=== PATIENT | female | born 1975 | race Two or more races ===

== ENCOUNTER 2020-11-19 02:52 | Emergency (ER) | payer MEDICAID ==
[~2020-11-19] VITALS: Ht 165.1 cm; Wt 68.0 kg
--- NOTE | 2020-11-19 03:06 | Emergency Room Report ---
History of Present Illness General Chief Complaint: General Complaint Source: Patient Present Illness HPI This is a 65-year-old female with no past medical history. She presents with chief complaint of this. She says she is visiting from [place]. She was visiting her kids here in [place] for [place]. She was supposed to fly out yesterday. She says she has trouble with her ID so unable to get the pain take it. She will try to h and says she got wrong direction. She was waiting for the bus but none of them came. She said her phone went and she got very anxious and called 911. She admits to drinking alcohol tonight. Denies any other symptoms right now. Not anxious anymore. No fever chills but no nausea no vomiting. Nothing made it better. Not made it worse. Allergies: Uncoded Allergies: SULFA (Allergy, Unknown, 11/19/20) COVID-19 Screening Contact w/high risk pt: No Experienced COVID-19 symptoms?: No COVID-19 Testing performed OD GRINDER OPERATOR: No Patient History Past Medical History: see triage record, old chart reviewed Past Surgical History: none Pertinent Family History: none Social History: Reports: alcohol use Immunizations: other Reviewed Nursing Documentation: PMH: Agreed; PSxH: Agreed Nursing Documentation-PMH Hx Hypertension: Yes Hx Diabetes: Yes Review of Systems Eye: Denies: eye pain, blurred vision ENT: Denies: ear pain, nose congestion, throat swelling Respiratory: Denies: cough, shortness of breath Cardiovascular: Denies: chest pain, palpitations Gastrointestinal: Denies: abdominal pain, diarrhea, nausea, vomiting Musculoskeletal: Denies: back pain, joint pain Skin: Denies: rash Neurological: Denies: headache, numbness Endocrine: Denies: increased thirst, increased urine Hematologic/Lymphatic: Denies: easy bruising All Other Systems: negative except mentioned in HPI Physical Exam Vital Signs Date Time Temp Pulse Resp B/P (MAP) Pulse Ox O2 Delivery O2 Flow Rate FiO2 11/19/20 02:53 98.4 100 18 146/76 (99) 97 Room Air Vitals unremarkable Sp02 EP Interpretation: reviewed, normal General Appearance: well appearing, no apparent distress, alert, other - Slurring her speech. Head: normocephalic, atraumatic Eyes: bilateral eye PERRL, bilateral eye EOMI ENT: hearing grossly normal, normal pharynx Neck: full range of motion, supple, no meningismus Respiratory: chest non-tender, lungs clear, normal breath sounds Cardiovascular #1: regular rate, rhythm, no murmur Gastrointestinal: normal bowel sounds, non tender, no mass, no organomegaly, no bruit, non-distended Musculoskeletal: back normal, normal range of motion, gait/station normal Psychiatric: mood/affect normal Medical Decision Making Diagnostic Impression: Primary Impression: Alcohol intoxication Qualified Codes: F10.920 - Alcohol use, unspecified with intoxication, uncomplicated Additional Impression: Anxiety ER Course Presents with anxiety. [place] better now. This may be alcohol related. She access to phones on her. Patient claimed that she is not homeless. Will discharge home in the morning. Last Vital Signs Date Time Temp Pulse Resp B/P (MAP) Pulse Ox O2 Delivery O2 Flow Rate FiO2 11/19/20 02:53 98.4 100 18 146/76 (99) 97 Room Air Status: improved Disposition: HOME, SELF-CARE Condition: Stable Additional Instructions: Abstain from alcohol. Follow-up with your doctor in 7 days. Return if worse. Shaan Alcazar MD Nov 19, 2020 03:06
[2020-11-19 03:09] VITALS: BP 140/75
[2020-11-19 05:30] VITALS: BP 112/85
== END 2020-11-19 05:30 | disposition home or self-care (01) ==
LOC: EDSEX 02:52 → EDBD 02:52 → EDSEX 03:25 → EMR 03:25
DX: F10.920 Alcohol use, unspecified with intoxication, uncomplicated (principal); F41.9 Anxiety disorder, unspecified; I10 Essential (primary) hypertension; E11.9 Type 2 diabetes mellitus without complications; Z88.2 Allergy status to sulfonamides
CPT/HCPCS: 99283